=== PATIENT | male | born 1975 | race Caucasian/White ===

== ENCOUNTER 2017-11-23 22:29 | Emergency (ER) | payer SELFPAY, BC ==
[2017-11-23] MEDS: IPRATRPIUM/ALBUTEROL 0.5/2.5MG 3 ML NEBU. NEB (23:50)
== END 2017-11-24 | disposition home or self-care (01) ==
LOC: ER 11-24
DX: R05 Cough (principal); E78.00 Pure hypercholesterolemia, unspecified; R09.81 Nasal congestion
CPT/HCPCS: 71046; 94640; 99284-25; J7620

== ENCOUNTER 2018-04-03 13:08 | Emergency (ER) | payer BC, MEDICARE ==
[2018-04-03] MEDS: predniSONE 20 MG TABLET PO (13:40)
[2018-04-03] MEDS: IPRATROPIUM BROMIDE 0.5 MG/2.5 ML NEBU. NEB (13:42)
[2018-04-03] MEDS: ALBUTEROL SULFATE 2.5 MG/3 ML NEBU. CONT NEB (13:44)
== END 2018-04-03 14:42 | disposition home or self-care (01) ==
LOC: ER 14:42
DX: J40 Bronchitis, not specified as acute or chronic (principal); E78.00 Pure hypercholesterolemia, unspecified; I10 Essential (primary) hypertension; Z87.891 Personal history of nicotine dependence
CPT/HCPCS: 94640; 94644; 99285-25; J7512; J7613; J7644

== ENCOUNTER 2019-01-15 17:35 | Emergency (ER) | payer BC ==
[~2019-01-15] VITALS: Ht 162.6 cm; Wt 81.6 kg
[~2019-01-15 17:35] MED LIST: ALBU2.5V8 INH; AZIT250T6 PO; BENZ100C PO; HYDR-3164 PO; PRED20TA PO; PRED50TA PO
[2019-01-15 18:27] LABS: BASO % 0 % (0-3); EOS % 1 % (0-3); HEMATOCRIT 46.6 % (39.0-53.0); HEMOGLOBIN 15.5 g/dL (13.0-17.5); LYMPH # 2.5 x10^3/uL (1.0-4.8); LYMPH % 24 % (24-48); MEAN CORPUSCULAR HEMOGLOBIN 30 pg (25-35); MEAN CORPUSCULAR HGB CONC 33 g/dL (31-37); MEAN CORPUSCULAR VOLUME 91 fL (79-100); MONO % 10 % (0-9); NEUT # 6.9 x10^3uL (1.8-7.7); NEUT % 66 % (31-73); PLATELET COUNT 262 x10^3/uL (140-400); RED BLOOD COUNT 5.13 x10^6/uL (4.30-5.70); RED CELL DISTRIBUTION WIDTH 13.3 % (11.5-14.5); WHITE BLOOD COUNT 10.5 x10^3/uL (4.0-11.0)
[2019-01-15] MEDS ORDERED: IV NORMAL SALINE 1000ML BAG 1,000 ML IV ONE (18:30)
[2019-01-15 18:35] LABS: CALCIUM 9.4 mg/dL (8.5-10.1); CREATININE 1.1 mg/dL (0.7-1.3); GFR 72.7; POTASSIUM 3.4 mmol/L (3.5-5.1)
[2019-01-15 18:41] LABS: ALBUMIN 3.6 g/dL (3.4-5.0); ALBUMIN/GLOBULIN RATIO 0.9 (1.0-1.7); TOTAL BILIRUBIN 0.4 mg/dL (0.2-1.0); TOTAL PROTEIN 7.4 g/dL (6.4-8.2)
--- NOTE | 2019-01-15 18:47 | PHYS DOC ---
Past Medical History Past Medical History: Anxiety, Bronchitis, High Cholesterol, Hypertension, Seizure Additional Past Medical Histor: MRDD (ELVI SANCHEZ APRN) Past Surgical History: No Surgical History (ELVI SANCHEZ APRN) Alcohol Use: Occasionally (2 beers maximum) Drug Use: None (ELVI SANCHEZ APRN) Adult General Chief Complaint Chief Complaint: ABDOMINAL PAIN HPI HPI Patient is a 43 year old male, accompanied by his mother, who presents to the ER with complaints of left flank pain for the last 3 days. He denies any nausea , vomiting, diarrhea, constipation, abdominal pain, dysuria, difficulty voiding , or hematuria. Mother states that the pain increased last night. Pt states that he had 2 normal bowel movements earlier today. He denies any fever. He has a hx of seizures, anxiety, and high cholesterol. Currently, pt is very anxious and is denying pain at this time. (ELVI SANCHEZ APRN) Review of Systems Review of Systems Constitutional: Denies fever or chills [] Eyes: Denies redness, or eye pain [] HENT: Denies nasal congestion or sore throat [] Respiratory: Denies cough or shortness of breath [] Cardiovascular: No additional information not addressed in HPI [] GI: Denies nausea, vomiting, bloody stools or diarrhea [] : Denies dysuria or hematuria; see HPI [] Musculoskeletal: Denies back pain or joint pain [] Integument: Denies rash or skin lesions [] Neurologic: Denies headache Complete systems were reviewed and found to be within normal limits, except as documented in this note. (ELVI SANCHEZ APRN) Current Medications Current Medications Current Medications Medications (Trade) Dose Ordered Sig/Igor Start Time Stop Time Status Last Admin Dose Admin Info (CONTRAST GIVEN -- Rx MONITORING) 1 each PRN DAILY PRN 01/15/19 19:30 01/15/19 21:04 DC Iohexol (Omnipaque 300 Mg/ml) 75 ml 1X ONCE 01/15/19 19:30 01/15/19 19:31 DC 01/15/19 19:41 75 ML Lorazepam (Ativan) 0.5 mg 1X ONCE 01/15/19 18:45 01/15/19 18:46 DC 01/15/19 18:52 0.5 MG Sodium Chloride 1,000 ml @ 1,000 mls/hr 1X ONCE 01/15/19 18:30 01/15/19 19:29 DC 01/15/19 18:28 1,000 MLS/HR (KEVIN ABDI MD) Allergies Allergies Allergies Coded Allergies Type Severity Reaction Last Updated Verified No Known Drug Allergies 07/20/16 No (KEVIN ABDI MD) Physical Exam Physical Exam Constitutional: Well developed, well nourished, anxious, non-toxic appearance. [ ] HENT: Normocephalic, atraumatic, bilateral external ears normal, oropharynx moist, nose normal. [] Eyes: PERRLA, conjunctiva normal, no discharge. [] Neck: Normal range of motion, no stridor. [] Cardiovascular:Heart rate regular rhythm, no murmur [] Lungs & Thorax: Bilateral breath sounds clear to auscultation [] Abdomen: Bowel sounds normal, soft, no tenderness, no masses, no pulsatile masses. [] Skin: Warm, dry, no erythema, no rash. [] Back: no CVA tenderness. [] Extremities: No cyanosis, ROM intact, no edema. [] Neurologic: Alert and oriented X 3, normal motor function, normal sensory function, no focal deficits noted. [] Psychologic: Affect anxious, judgement normal (ELVI SANCHEZ APRN) Current Patient Data Vital Signs Vital Signs Date Time Temp Pulse Resp B/P (MAP) Pulse Ox O2 Delivery O2 Flow Rate FiO2 01/15/19 20:30 123 20 169/99 (122) 95 Room Air 01/15/19 17:42 98.0 98.0 (KEVIN ABDI MD) Lab Values Laboratory Tests Test 01/15/19 18:20 01/15/19 18:45 White Blood Count 10.5 x10^3/uL (4.0-11.0) Red Blood Count 5.13 x10^6/uL (4.30-5.70) Hemoglobin 15.5 g/dL (13.0-17.5) Hematocrit 46.6 % (39.0-53.0) Mean Corpuscular Volume 91 fL (79-100) Mean Corpuscular Hemoglobin 30 pg (25-35) Mean Corpuscular Hemoglobin Concent 33 g/dL (31-37) Red Cell Distribution Width 13.3 % (11.5-14.5) Platelet Count 262 x10^3/uL (140-400) Neutrophils (%) (Auto) 66 % (31-73) Lymphocytes (%) (Auto) 24 % (24-48) Monocytes (%) (Auto) 10 % (0-9) H Eosinophils (%) (Auto) 1 % (0-3) Basophils (%) (Auto) 0 % (0-3) Neutrophils # (Auto) 6.9 x10^3uL (1.8-7.7) Lymphocytes # (Auto) 2.5 x10^3/uL (1.0-4.8) Monocytes # (Auto) 1.0 x10^3/uL (0.0-1.1) Eosinophils # (Auto) 0.0 x10^3/uL (0.0-0.7) Basophils # (Auto) 0.0 x10^3/uL (0.0-0.2) Sodium Level 147 mmol/L (136-145) H Potassium Level 3.4 mmol/L (3.5-5.1) L Chloride Level 104 mmol/L (98-107) Carbon Dioxide Level 32 mmol/L (21-32) Anion Gap 11 (6-14) Blood Urea Nitrogen 16 mg/dL (8-26) Creatinine 1.1 mg/dL (0.7-1.3) Estimated GFR (Cockcroft-Gault) 72.7 BUN/Creatinine Ratio 15 (6-20) Glucose Level 133 mg/dL (70-99) H Calcium Level 9.4 mg/dL (8.5-10.1) Total Bilirubin 0.4 mg/dL (0.2-1.0) Aspartate Amino Transferase (AST) 34 U/L (15-37) Alanine Aminotransferase (ALT) 76 U/L (16-63) H Alkaline Phosphatase 77 U/L (46-116) Total Protein 7.4 g/dL (6.4-8.2) Albumin 3.6 g/dL (3.4-5.0) Albumin/Globulin Ratio 0.9 (1.0-1.7) L Urine Collection Type Unknown Urine Color Yellow Urine Clarity Clear Urine pH 5.5 Urine Specific [place] >=1.030 Urine Protein Negative mg/dL (NEG-TRACE) Urine Glucose (UA) Negative mg/dL (NEG) Urine Ketones (Stick) Trace mg/dL (NEG) Urine Blood Negative (NEG) Urine Nitrite Negative (NEG) Urine Bilirubin Negative (NEG) Urine Urobilinogen Dipstick 0.2 mg/dL (0.2 mg/dL) Urine Leukocyte Esterase Negative (NEG) Urine RBC 0 /HPF (0-2) Urine WBC 0 /HPF (0-4) Urine Squamous Epithelial Cells Occ /LPF Urine Bacteria 0 /HPF (0-FEW) Urine Mucus Marked /LPF Urine Sperm Present /HPF Laboratory Tests 01/15/19 18:20 Laboratory Tests 01/15/19 18:20 (KEVIN ABDI MD) EKG EKG 1751- Sinus tachycardia, rate 139, no STEMI read by Dr. Corrales at 1756[] (ELVI SANCHEZ NEON LIGHT INSTALLER) Radiology/Procedures Radiology/Procedures PROCEDURE: CT ABD PELV W/ IV CONTRST ONLY CT abdomen and pelvis with contrast TECHNIQUE: Helical CT imaging of abdomen and pelvis was acquired with 75 mL Omnipaque 300 intravenous contrast. HISTORY: Left flank pain. PQRS statement: CT scans at this facility use dose reduction including either automated exposure control, iterative reconstructions, and /or weight based radiation dosing via mA and kV modification when appropriate to reduce radiation dose to as low as reasonably achievable. Abdomen findings: Calcified granuloma right lung base. Mild lumbar scoliosis and changes of disc disease. Liver, gallbladder, pancreas, adrenals, kidneys and spleen are unremarkable. There is mild left renal pelviectasis diameter 1 cm, no obvious obstructing calculus or inflammatory change or hydronephrosis, motion artifact somewhat limits evaluation further. There is fold thickening and mild distention of the duodenum and jejunum at the left upper quadrant, the distal small bowel is relatively collapsed no transition point evident. Appendix is negative. No abdominal fluid or adenopathy. There may be mild mesenteric groundglass edema at the jejunum left upper quadrant or although could be due to motion artifact. Pelvis findings: No fluid or adenopathy. Pelvic phleboliths. Bladder, prostate, rectum and bones are unremarkable. IMPRESSION: 1. Fold thickening and distention of the duodenum and jejunum may indicate enteritis. 2. Appendix is negative. 3. Mild left renal pelviectasis.[] (ELVI SANCHEZ APRN) Course & Med Decision Making Course & Med Decision Making Pertinent Labs and Imaging studies reviewed. (See chart for details) 2034- Spoke to Dr. Campbell, advised of pt's hypertension in the ER. Currently 160/ 99. Notified Dr. Campbell that pt presented to the ER for left flank pain, UA negative, CT abd/pel no acute findings, CBC unremarkable. K+ 3.4, glucose 133. Will prescribe lisinopril 20 mg tablets, 1 PO daily, and have patient follow up in office next week. DX: hypertension, left flank pain Pt instructed to increase clear fluids, diet as tolerated. Follow up with Dr. Campbell next week. Return to the ER if symptoms worsen. [] (ELVI SANCHEZ APRN) Course & Med Decision Making Staff Physician Addendum: I was working in the ER during the course of this patient's visit. I was available for consultation as needed, but I was not directly involved in the care of this patient. (KEVIN ABDI MD) Dragon Disclaimer Dragon Disclaimer This electronic medical record was generated, in whole or in part, using a voice recognition dictation system. (ELVI SANCHEZ APRN) Departure Departure Impression: Primary Impression: Acute left flank pain Additional Impression: Hypertension Disposition: HOME, SELF-CARE Condition: STABLE Referrals: CINDY CAMPBELL MD (PCP) Patient Instructions: Flank Pain, [id number], Hypertension Additional Instructions: Fill the prescription and use as directed. Increase clear fluids, diet as tolerated. Follow up with Dr. Campbell next week, call on Thursday to schedule an appointment. Return to the ER if your symptoms worsen. Scripts Lisinopril (LISINOPRIL) 20 Mg Tablet 1 TAB PO DAILY, #30 TAB 0 Refills Prov: ELVI SANCHEZ APRN 01/15/19 Problem Qualifiers Additional Impression: Hypertension Hypertension type: unspecified Qualified Codes: I10 - Essential (primary) hypertension ELVI SANCHEZ APRN Jan 15, 2019 18:47 KEVIN ABDI MD Jan 16, 2019 19:31
[2019-01-15 18:55] LABS: BILIRUBIN,URINE NEGATIVE (NEG); CLARITY,URINE CLEAR; COLOR,URINE YELLOW; NITRITE,URINE NEGATIVE (NEG); PH,URINE 5.5; PROTEIN,URINE NEGATIVE (NEG-TRACE); UROBILINOGEN,URINE 0.2 mg/dL (0.2 mg/dL)
[2019-01-15 19:02] LABS: BACTERIA,URINE 0 /HPF (0-FEW); RBC,URINE 0 /HPF (0-2); SPERM,URINE PRESENT /HPF; SQUAMOUS EPITHELIAL CELL,UR OCC /LPF; WBC,URINE 0 /HPF (0-4)
[2019-01-15] MEDS ORDERED: IOHEXOL 300 MG/ML 100ML VIAL. IV ONE (19:30)
[2019-01-15] MEDS ORDERED: CONTRAST GIVEN. MC PRN (19:30)
--- NOTE | 2019-01-15 20:00 | RAD ---
CT abdomen and pelvis with contrast TECHNIQUE: Helical CT imaging of abdomen and pelvis was acquired with 75 mL Omnipaque 300 intravenous contrast. HISTORY: Left flank pain. PQRS statement: CT scans at this facility use dose reduction including either automated exposure control, iterative reconstructions, and /or weight based radiation dosing via mA and kV modification when appropriate to reduce radiation dose to as low as reasonably achievable. Abdomen findings: Calcified granuloma right lung base. Mild lumbar scoliosis and changes of disc disease. Liver, gallbladder, pancreas, adrenals, kidneys and spleen are unremarkable. There is mild left renal pelviectasis diameter 1 cm, no obvious obstructing calculus or inflammatory change or hydronephrosis, motion artifact somewhat limits evaluation further. There is fold thickening and mild distention of the duodenum and jejunum at the left upper quadrant, the distal small bowel is relatively collapsed no transition point evident. Appendix is negative. No abdominal fluid or adenopathy. There may be mild mesenteric groundglass edema at the jejunum left upper quadrant or although could be due to motion artifact. Pelvis findings: No fluid or adenopathy. Pelvic phleboliths. Bladder, prostate, rectum and bones are unremarkable. IMPRESSION: 1. Fold thickening and distention of the duodenum and jejunum may indicate enteritis. 2. Appendix is negative. 3. Mild left renal pelviectasis. Electronically signed by: Wilman Serna MD (01/15/2019 7:57 PM) [facility]
[2019-01-15 20:30] VITALS: BP 169/99
[2019-01-15] MEDS ORDERED: LISI-334 PO (20:49)
--- NOTE | 2019-01-16 08:43 | EKG ---
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
== END 2019-01-15 21:03 | disposition home or self-care (01) ==
LOC: ER 17:35
DX: R10.9 Unspecified abdominal pain (principal); I10 Essential (primary) hypertension; F41.9 Anxiety disorder, unspecified; E78.00 Pure hypercholesterolemia, unspecified; R00.0 Tachycardia, unspecified; J84.10 Pulmonary fibrosis, unspecified; I87.8 Other specified disorders of veins
CPT/HCPCS: 36415; 74177; 80053; 81001; 85025; 93005; 96374; 99284; J2060; J7030; Q9967

== ENCOUNTER 2020-04-25 14:20 | Emergency (ER) | payer MEDICARE ==
[~2020-04-25] VITALS: Ht 172.7 cm; Wt 115.0 kg
[~2020-04-25 14:20] MED LIST changes: +LISI-334 PO
[2020-04-25 15:15] VITALS: BP 156/85
[2020-04-25] MEDS ORDERED: IPRATRPIUM/ALBUTEROL 0.5/2.5MG 3 ML NEBU. NEB ONE (15:45)
--- NOTE | 2020-04-25 15:45 | PHYS DOC ---
Past Medical History Past Medical History: Anxiety, Bronchitis, High Cholesterol, Hypertension, Seizure Additional Past Medical Histor: MRDD Past Surgical History: No Surgical History Smoking Status: Former Smoker Alcohol Use: Occasionally Drug Use: None General Adult EDM: Chief Complaint: ASTHMA HPI: HPI: Patient is a 44 year old male patient with asthma exacerbation. Patient presents with his mother, reporting that starting yesterday he has had a flareup of his asthma. States that He has had a few episodes like this in the past, however not very often. Had used his inhaler last night, which seemed to help for a little while. However continued to feel short of breath today. Denies recent fever. States he does have a cough, states when he has this cough that seems to exacerbate his asthma. Denies discomfort Review of Systems: Review of Systems: Constitutional: Denies fever or chills. [] Eyes: Denies change in visual acuity. [] HENT: Does report some nasal congestion, denies sore throat Respiratory: Reports cough, shortness of breath. 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 [] GI: Denies abdominal pain, nausea, vomiting, bloody stools or diarrhea. [] Musculoskeletal: Denies back pain or joint pain. [] Neurologic: Denies headache, focal weakness or sensory changes. [] Heart Score: Risk Factors: Risk Factors: DM, Current or recent (<one month) smoker, HTN, HLP, family history of CAD, obesity. Risk Scores: Score 0 - 3: 2.5% MACE over next 6 weeks - Discharge Home Score 4 - 6: 20.3% MACE over next 6 weeks - Admit for Clinical Observation Score 7 - 10: 72.7% MACE over next 6 weeks - Early Invasive Strategies Current Medications: Current Medications Medications (Trade) Dose Ordered Sig/Igor Start Time Stop Time Status Last Admin Dose Admin Albuterol/ Ipratropium (Duoneb) 3 ml 1X ONCE 04/25/20 15:45 04/25/20 15:46 UNV Allergies: Allergies: Allergies Coded Allergies Type Severity Reaction Last Updated Verified No Known Drug Allergies 07/20/16 No Physical Exam: PE: Constitutional: Well developed, well nourished, no acute distress, non-toxic appearance. [] HENT: Normocephalic, atraumatic, bilateral external ears normal, oropharynx moist, no oral exudates, nose normal. [] Eyes: PERRLA, EOMI, conjunctiva normal, no discharge. [] Neck: Normal range of motion, no tenderness, supple, no stridor. [] Cardiovascular:Heart rate regular rhythm, no murmur [] Lungs & Thorax: Bilateral breath sounds diminished with faint wheezes noted bilaterally [] Abdomen: Bowel sounds normal, soft, no tenderness, no masses, no pulsatile masses. [] Skin: Warm, dry, no erythema, no rash. Flushed, patient notes this is from sunburn from the last couple days outside [] Back: No tenderness, no CVA tenderness. [] Extremities: No tenderness, no cyanosis, no clubbing, ROM intact, no edema. [] Neurologic: Alert and oriented X 3, normal motor function, normal sensory function, no focal deficits noted. [] Psychologic: Affect normal, judgement normal, mood normal. [] EKG: EKG: [] Radiology/Procedures: Radiology/Procedures: []Findings: There is no focal consolidation or infiltrate identified. There is a calcified granuloma in the right lower lobe. Heart size is normal. There is no evidence of pneumothorax or pleural effusion. No acute osseous abnormalities are identified. Impression: No evidence of acute cardiopulmonary process. Electronically signed by: Philipp Felipe MD (04/25/2020 3:45 PM) [id number] Course & Med Decision Making: Course & Med Decision Making Pertinent Labs and Imaging studies reviewed. (See chart for details) [] Following breathing treatment, patient states that he feels much better. States his breathing feels alleviated, less shortness of breath. States that he feels a lot better about going home at this time. Will provide short course of steroids, patient continues to have his nebulizer at home. Patient will follow-up with his primary care. discussed with mother, in agreement with plan of care Juan M Disclaimer: Juan M Disclaimer: This electronic medical record was generated, in whole or in part, using a voice recognition dictation system. Departure Departure Impression: Primary Impression: Asthma exacerbation Qualified Codes: J45.21 - Mild intermittent asthma with (acute) exacerbation Disposition: HOME, SELF-CARE Condition: IMPROVED Referrals: CINDY SANCHEZ MD (PCP) Patient Instructions: Asthma, Adult Additional Instructions: As we discussed, continue to use your inhaler as needed. Take the steroids as prescribed. Drink plenty fluids, get some rest. Scripts Prednisone (PREDNISONE) 20 Mg Tablet 1 TAB PO DAILY for 5 Days, #5 TAB Prov: SUZAN BARRETT APRN 04/25/20 Justicifation of Admission Dx: Justifications for Admission: Justification of Admission Dx: N/A SUZAN BARRETT APRN Apr 25, 2020 15:45
--- NOTE | 2020-04-25 15:49 | RAD ---
AP and Lateral Views of the Chest 04/25/2020 3:31 PM Indication: Reason: Cough, asthma hx / Spl. Instructions: / History: Comparison: Calcified granuloma noted in the right Findings: There is no focal consolidation or infiltrate identified. There is a calcified granuloma in the right lower lobe. Heart size is normal. There is no evidence of pneumothorax or pleural effusion. No acute osseous abnormalities are identified. Impression: No evidence of acute cardiopulmonary process. Electronically signed by: Philipp Felipe MD (04/25/2020 3:45 PM) [id number]
[2020-04-25] MEDS ORDERED: PRED20TA PO (16:12)
== END 2020-04-25 16:49 | disposition home or self-care (01) ==
LOC: ER 14:20
DX: J45.21 Mild intermittent asthma with (acute) exacerbation (principal); E78.00 Pure hypercholesterolemia, unspecified; I10 Essential (primary) hypertension; Z87.891 Personal history of nicotine dependence
CPT/HCPCS: 71046; 94640; 99283